=== PATIENT | male | born 1950 | race Hispanic/Latino ===

== ENCOUNTER 2020-03-29 22:04 | Observation (INO) | payer OTHER ==
[2020-03-29 22:54] LABS: Absolute Lymphocytes (CBC) 1.5 K/uL (0.7-4.9); Basophils % 0.3 % (0-1.3); Hematocrit 42.3 % (39.6-49.0); Lymphocytes % 16.2 % (15.3-44.8); MPV 9.3 fL (7.6-11.3); Protime INR 1.04
[2020-03-29 23:15] LABS: ALT/SGPT 26 U/L (12-78); Albumin 4.1 g/dL (3.4-5.0); Alkaline Phosphatase 78 U/L (45-117); BUN Blood Urea Nitrogen 20 mg/dL (7-18); Bicarbonate 27 mmol/L (21-32); Bilirubin Direct < 0.1 mg/dL (0-0.2); Bilirubin Total 0.5 mg/dL (0.2-1.0); Glucose Level 141 mg/dL (74-106); NT PRO-BNP 45 pg/mL (<125); Protein, Total 8.1 g/dL (6.4-8.2); Sodium Level 140 mmol/L (136-145); Troponin (Emerg Dept Use Only) < 0.02 ng/mL (0.0-0.045)
[2020-03-29 23:17] LABS: AST/SGOT 22 U/L (15-37); Magnesium 2.2 mg/dL (1.8-2.4)
--- NOTE | 2020-03-29 23:24 | EDPHYS ---
Physician Documentation [facility] Name: Arben Spear Age: 69 yrs Sex: Male : 1950 Arrival Date: 03/29/2020 Time: 22:06 Bed 14 Private MD: Juan Thomas ED Physician Deion Alvarez HPI: 03/30 06:57 This 69 yrs old Male presents to ER via Ambulatory with complaints of High tw4 Blood Pressure, Chest Pressure. 06:57 The patient or guardian reports chest pain that is located primarily in the anterior tw4 chest wall. Onset: today. 06:58 The pain does not radiate. Duration: The patient or guardian reports a single episode. tw4 Modifying factors: The symptoms are alleviated by nothing. the symptoms are aggravated by nothing. The patient has not experienced similar symptoms in the past. Historical: - Allergies: 03/29 22:26 No Known Allergies; sg - PMHx: 22:26 Hypertension; sg - Immunization history:: Adult Immunizations not up to date. - Social history:: Smoking status: Patient denies any tobacco usage or history of. ROS: 03/30 06:58 Constitutional: Negative for fever, chills, and weight loss. tw4 Eyes: Negative for injury, pain, redness, and discharge, Respiratory: Negative for shortness of breath, cough, wheezing, and pleuritic chest pain, Abdomen/GI: Negative for abdominal pain, nausea, vomiting, diarrhea, and constipation, Back: Negative for injury and pain, MS/Extremity: Negative for injury and deformity, Skin: Negative for injury, rash, and discoloration, Neuro: Negative for headache, weakness, numbness, tingling, and seizure. Cardiovascular: Positive for chest pain, Negative for edema, orthopnea, palpitations. Exam: 06:58 Constitutional: This is a well developed, well nourished patient who is awake, alert, tw4 and in no acute distress. Neck: Trachea midline, no thyromegaly or masses palpated, and no cervical lymphadenopathy. Supple, full range of motion without nuchal rigidity, or vertebral point tenderness. No Meningismus. Chest/axilla: Normal chest wall appearance and motion. Nontender with no deformity. No lesions are appreciated. Cardiovascular: Regular rate and rhythm with a normal S1 and S2. No gallops, murmurs, or rubs. Normal PMI, no JVD. No pulse deficits. Respiratory: Lungs have equal breath sounds bilaterally, clear to auscultation and percussion. No rales, rhonchi or wheezes noted. No increased work of breathing, no retractions or nasal flaring. Abdomen/GI: Soft, non-tender, with normal bowel sounds. No distension or tympany. No guarding or rebound. No evidence of tenderness throughout. Back: No spinal tenderness. No costovertebral tenderness. Full range of motion. Skin: Warm, dry with normal turgor. Normal color with no rashes, no lesions, and no evidence of cellulitis. MS/ Extremity: Pulses equal, no cyanosis. Neurovascular intact. Full, normal range of motion. Neuro: Awake and alert, GCS 15, oriented to person, place, time, and situation. Cranial nerves II-XII grossly intact. Motor strength 5/5 in all extremities. Sensory grossly intact. Cerebellar exam normal. Normal gait. Vital Signs: 03/29 22:28 BP 175 / 109; Pulse 101; Resp 18; Pulse Ox 99% on R/A; Weight 108.86 kg; Height 5 ft. zb 10 in. (177.80 cm); 03/30 00:14 BP 139 / 83; Pulse 65; Resp 18; Temp 98.5; Pulse Ox 96% on R/A; mg2 03/29 22:28 Body Mass Index 34.44 (108.86 kg, 177.80 cm) zb MDM: 03/29 22:24 Patient medically screened. tw4 03/30 06:59 HEART Score: History: Moderately Suspicious (1), ECG: Non specific repolarization tw4 disturbance / LBTB / PM (1), Age: > or = 65 years (2), Risk Factors: 1 or 2 risk factors (1), Troponin: < or = 1 x Normal Limit (0). Data reviewed: vital signs, nurses notes. Data interpreted: Pulse oximetry: Interpretation: normal. Counseling: I had a detailed discussion with the patient and/or guardian regarding: the historical points, exam findings, and any diagnostic results supporting the discharge/admit diagnosis. Physician consultation: Brando Alfonso MD regarding admission, to the telemetry unit. and will see patient in inpatient room. 03/29 22:25 Order name: Basic Metabolic Panel; Complete Time: 23:22 tw4 03/29 23:22 Interpretation: Normal except: GLUC 141; GFR 59; BUN 20. tw4 03/29 22:25 Order name: CBC with Diff; Complete Time: 23:22 tw4 03/29 23:22 Interpretation: Normal except: PLT 135; KIANA% 76.5. tw4 03/29 22:25 Order name: LFT's; Complete Time: 23:22 tw4 03/29 23:23 Interpretation: Normal except: A/G 1.0; GLOB 4.0. tw4 03/29 22:25 Order name: Magnesium; Complete Time: 23:22 tw4 03/29 23:23 Interpretation: Within normal limits: MG 2.2. tw4 03/29 22:25 Order name: NT PRO-BNP; Complete Time: 23:22 tw4 03/29 23:23 Interpretation: Within normal limits: NT PRO-BNP 45. tw4 03/29 22:25 Order name: PT-INR; Complete Time: 23:22 tw4 03/29 23:23 Interpretation: Within normal limits: PT 12.3. tw4 03/29 22:25 Order name: Troponin (emerg Dept Use Only); Complete Time: 23:22 tw4 03/29 23:23 Interpretation: Within normal limits: TROPED < 0.02. tw4 03/29 22:25 Order name: XRAY Chest (1 view) tw 03/29 22:25 Order name: EKG; Complete Time: 22:25 tw4 03/29 22:25 Order name: Cardiac monitoring; Complete Time: 22:37 4 03/30 00:51 Order name: SARS-COV-2 RT PCR EDMS 03/29 22:25 Order name: EKG - Nurse/Tech; Complete Time: 22:37 tw4 03/29 22:25 Order name: IV Saline Lock; Complete Time: 22:37 tw4 03/29 22:25 Order name: Labs collected and sent; Complete Time: 22:37 tw4 03/29 22:25 Order name: O2 Per Protocol; Complete Time: 22:37 tw4 03/29 22:25 Order name: O2 Sat Monitoring; Complete Time: 22:37 tw4 EC:58 Rhythm is regular. QRS [place] is Normal. [place] interval is normal. QRS interval is normal. tw4 QT interval is normal. No Q waves. T waves are Inverted in leads I, aVL, V3. No ST changes noted. Clinical impression: RBBB. Interpreted by me. Reviewed by me. Administered Medications: 03/29 23:51 Drug: Metoprolol TARTRATE (Lopressor) 50 mg Route: PO; mg2 03/30 00:14 Follow up: Response: No adverse reaction mg2 03/29 23:51 Drug: Aspirin Chewable Tablet 324 mg Route: PO; mg2 03/30 00:14 Follow up: Response: No adverse reaction mg2 Disposition: 03/29/20 23:24 Hospitalization ordered by Brando Alfonso for Observation. Preliminary diagnosis is Other chest pain. - Bed requested for Telemetry/MedSurg (observation). - Status is Observation. mg2 - Condition is Stable. - Problem is new. - Symptoms have improved. Signatures: Dispatcher [employer] EDMI Janet Aranda RN RN kl Alan Garcia RN CRYSTAL Arben Mann, DIRECTOR TRIAL-C DIRECTOR TRIAL-Cla1 Deion Alvarez MD MD tw4 Aaron Soto RN RN mg2 Deepti Orozco RN RN zb Corrections: (The following items were deleted from the chart) 03/29 23:55 23:26 CORONAVIRUS+MR.LAB.BRZ ordered. [facility] 03/30 00:01 03/29 23:24 Hospitalization Ordered by Brando Alfonso MD for Observation. Preliminary kl diagnosis is Other chest pain. Bed requested for Telemetry/MedSurg (observation). Status is Observation. Condition is Stable. Problem is new. Symptoms have improved. tw4 03/30 01:40 00:01 03/29/2020 23:24 Hospitalization Ordered by Brando Alfonso MD for Observation. mg2 Preliminary diagnosis is Other chest pain. Bed requested for Telemetry/MedSurg (observation). Status is Observation. Condition is Stable. Problem is new. Symptoms have improved. kl
--- NOTE | 2020-03-29 23:24 | ER ---
Nurse's Notes [facility] Name: Arben Spear Age: 69 yrs Sex: Male : 1950 Arrival Date: 03/29/2020 Time: 22:06 Bed 14 Private MD: Juan Thomas Diagnosis: Other chest pain Presentation: 03/29 22:24 Chief complaint: Patient states: My blood pressure been running higher than normal at home, and Im starting to have some pressure in my chest. denies SOB/FEVER/N/D at this time for triage. Coronavirus screen: Client denies travel out of the [place] in the last 14 days. Ebola Screen: Patient negative for fever greater than or equal to 101.5 degrees Fahrenheit, and additional compatible Ebola Virus Disease symptoms Patient denies exposure to infectious person. Patient denies travel to an Ebola-affected area in the 21 days before illness onset. No symptoms or risks identified at this time. Initial Sepsis Screen: Does the patient meet any 2 criteria? No. Patient's initial sepsis screen is negative. Does the patient have a suspected source of infection? No. Patient's initial sepsis screen is negative. Risk Assessment: Do you want to hurt yourself or someone else? Patient reports no desire to harm self or others. Onset of symptoms was March 29, 2020. Care prior to arrival: None. Transition of care: patient was not received from another setting of care. 22:24 Acuity: NAYELI 3 sg 22:24 Method Of Arrival: Ambulatory sg Historical: - Allergies: 22:26 No Known Allergies; sg - PMHx: 22:26 Hypertension; sg - Immunization history:: Adult Immunizations not up to date. - Social history:: Smoking status: Patient denies any tobacco usage or history of. Screenin:10 Abuse screen: Denies threats or abuse. Denies injuries from another. Nutritional zb screening: No deficits noted. Tuberculosis screening: No symptoms or risk factors identified. Fall Risk None identified. Assessment: 22:50 General: Appears in no apparent distress. comfortable, Behavior is calm, cooperative, zb appropriate for age, Denies fever, feeling ill, fatigue. Pain: Denies pain. Neuro: Level of Consciousness is awake, alert, obeys commands, Oriented to person, place, time, situation. Cardiovascular: Reports chest pressure earlier in the day Heart tones S1 S2 present Capillary refill < 3 seconds in bilateral fingers Patient's skin is warm and dry. Pulses are all present. Respiratory: Airway is patent Respiratory effort is even, unlabored, Respiratory pattern is regular, symmetrical. GI: Abdomen is round non-distended, Bowel sounds present X 4 quads. Abd is soft and non tender X 4 quads. : No signs and/or symptoms were reported regarding the genitourinary system. EENT: No signs and/or symptoms were reported regarding the EENT system. Derm: Skin is intact, is healthy with good turgor, Skin is dry, Skin is normal. Musculoskeletal: Circulation, motion, and sensation intact. Range of motion: intact in all extremities. 03/30 00:15 Reassessment: Patient appears in no apparent distress at this time. Patient and/or mg2 family updated on plan of care and expected duration. Pain level reassessed. Patient is alert, oriented x 3, equal unlabored respirations, skin warm/dry/pink. Arben-STUD DRIVER came and assessed the patient and advised admission. Vital Signs: 03/29 22:28 BP 175 / 109; Pulse 101; Resp 18; Pulse Ox 99% on R/A; Weight 108.86 kg; Height 5 ft. zb 10 in. (177.80 cm); 03/30 00:14 BP 139 / 83; Pulse 65; Resp 18; Temp 98.5; Pulse Ox 96% on R/A; mg2 03/29 22:28 Body Mass Index 34.44 (108.86 kg, 177.80 cm) zb ED Course: 03/29 22:06 Patient arrived in ED. am2 22:06 Juan Thomas MD is Private Physician. am2 22:16 Deepti Orozco, CRYSTAL is Primary Nurse. zb 22:24 Deion Alvarez MD is Attending Physician. tw4 22:24 Arm band placed on. sg 22:25 Triage completed. sg 22:30 Patient has correct armband on for positive identification. Bed in low position. Call zb light in reach. Side rails up X 1. court monitor on. Pulse ox on. NIBP on. 22:36 Inserted saline lock: 20 gauge in right antecubital area, using aseptic technique. dh4 Blood collected. 22:47 XRAY Chest (1 view) In Process Unspecified. EDMS 23:10 Patient maintains SpO2 saturation greater than 95% on room air. zb 23:23 Brando Alfonso MD is Hospitalizing Provider. tw4 03/30 00:15 No provider procedures requiring assistance completed. Patient admitted, IV remains in mg2 place. Administered Medications: 03/29 23:51 Drug: Metoprolol TARTRATE (Lopressor) 50 mg Route: PO; mg2 03/30 00:14 Follow up: Response: No adverse reaction [facility] 03/29 23:51 Drug: Aspirin Chewable Tablet 324 mg Route: PO; mg2 03/30 00:14 Follow up: Response: No adverse reaction mg2 Outcome: 03/29 23:24 Decision to Hospitalize by Provider. tw4 03/30 01:40 Admitted to Med/surg accompanied by adela, milena 231, with chart, Report called to [facility] CRYSTAL Ruelas Condition: improved Instructed on the need for admit, Demonstrated understanding of instructions. 01:40 Patient left the ED. [facility] Signatures: Dispatcher [employer] EDMS Alan Garcia, RN RN sg Arben Mann, STUD DRIVER-C STUD DRIVER-Cla1 Ramona Crouch am2 Deion Alvarez MD MD tw4 Aaron Soto RN RN [facility] Leroy Chung 4 Deepti Orozco RN RN zb Corrections: (The following items were deleted from the chart) 03/29 23:12 22:50 Pain: Denies pain. zb zb 23:48 23:38 Aspirin Chewable Tablet 324 mg PO la1 zb 23:49 23:39 Metoprolol TARTRATE (Lopressor) 50 mg PO la1 zb
[2020-03-29] MEDS ORDERED: ASPIRIN 81 MG CHEWABLE TABLET ONE (23:50)
[2020-03-29] MEDS ORDERED: METOPROLOL TAR 25 MG TAB ONE (23:50)
--- NOTE | 2020-03-29 23:50 | P.HP ---
Certification for Inpatient Patient admitted to: Observation With expected LOS: <2 Midnights Patient will require the following post-hospital care: None Practitioner: I am a practitioner with admitting privileges, knowledge of patient current condition, hospital course, and medical plan of care. Services: Services provided to patient in accordance with Admission requirements found in Title 42 Section 412.3 of the Code of Federal Regulations <Arben Mann - Last Filed: 03/29/20 23:47> Patient History Date of Service: 03/29/20 Primary Care Provider: Dr. Thomas Reason for admission: Chest pain History of Present Illness: 61-year-old male with history of hypertension presents emergency depar tment for chest pain. Patient reports that he is stating is sufficiently began having epigastric/substernal chest pressure across his anterior chest wall. Patient described as heaviness, nonradiating. No associated signs or symptoms reported, pain lasted for approximately 5-10 min. Patient reports occasionally having similar symptoms in the past but not frequently. Patient denies previous cardiac workup of any kind. Patient was evaluated in the emergency department, chest x-ray unremarkable, EKG without acute changes. Initial troponin negative. ED provider wishes to admit patient for further evaluation and management. When I saw the patient in the emergency department he was awake, alert, oriented x3. Patient currently chest pain-free. Patient was mildly hypertensive when I saw him with blood pressure 160/90 and heart rate of 93. Patient reports that he started taking oral steroids approximately 2 days ago for Sinus infection. Patient reportedly gets medications from [place] when he feels ill in takes them on his own. Patient given aspirin 324 p.o. and metoprolol 50 p.o. in the emergency department. - Past Medical/Surgical History -: Hypertension -: none Psychosocial/ Personal History: Patient lives at home with his - Family History Mother -: Cancer (Lung cancer) Father -: Other (see notes) (Brain aneurysm) - Social History Smoking Status: Never smoker Alcohol use: No CD- Drugs: No Caffeine use: Yes Place of Residence: Home <Arben Mann - Last Filed: 03/29/20 23:47> Date of Service: 03/29/20 <Brando Alfonso - Last Filed: 04/02/20 14:06> Review of Systems 10-point ROS is otherwise unremarkable ENT: Nose Discharge Cardiovascular: Chest Pain <Arben Mann - Last Filed: 03/29/20 23:47> Physical Examination - Physical Exam General: Alert, In no apparent distress HEENT: Atraumatic, PERRLA, Mucous membr. moist/pink, EOMI, Sclerae nonicteric Neck: Supple, 2+ carotid pulse no bruit, Without JVD or thyroid abnormality Respiratory: Clear to auscultation bilaterally, Normal air movement Cardiovascular: Regular rate/rhythm, Normal S1 S2 Gastrointestinal: Normal bowel sounds, No tenderness Musculoskeletal: No tenderness Integumentary: No rashes Neurological: Normal speech, Normal strength at 5/5 x4 extr, Normal tone, Normal affect - Studies Laboratory Data (last 24 hrs) 03/29/20 22:34: PT 12.3, INR 1.04 03/29/20 22:34: WBC 9.5, Hgb 14.5, Hct 42.3, Plt Count 135 L 03/29/20 22:34: Sodium 140, Potassium 4.0, BUN 20 H, Creatinine 1.22, Glucose 141 H, Magnesium 2.2, Total Bilirubin 0.5, AST 22, ALT 26, Alkaline Phosphatase 78 <Arben Mann - Last Filed: 03/29/20 23:47> Assessment and Plan - Plan Assessment Chest pain rule out ACS Hypertension Plan Chest pain rule out ACS: Aspirin, beta-jose, statin. Monitor on telemetry. Trend troponins, cardiology consult in place. DVT prophylaxis Lovenox 40 mg subcutaneous once daily. Hypertension: Continue amlodipine, patient was hypertensive even after taking his home medications. Start metoprolol 25 p.o. b.i.d.. Discharge Plan: Home Plan to discharge in: 24 Hours - Advance Directives Does patient have a Living Will: No Does patient have a Durable POA for Healthcare: No - Code Status/Comfort Care Code Status Assessed: Yes (Full code) Critical Care: No Time Spent Managing Pts Care (In Minutes): 55 <Arben aMnn - Last Filed: 03/29/20 23:47> - Plan Plan of care reviewed and agree as noted above by Arben Mann. Trend troponins. r/o ACS <Brando Alfonso - Last Filed: 04/02/20 14:06>
[2020-03-30] MEDS ORDERED: ACETAMINOPHEN 500 MG TAB PO PRN (01:43)
[2020-03-30] MEDS ORDERED: ONDANSETRON 4 MG/2 ML VIAL IV PRN (01:43)
[2020-03-30 02:13] VITALS: BMI 32.3
[2020-03-30 05:42] LABS: Absolute Lymphocytes (CBC) 1.3 K/uL (0.7-4.9); Basophils % 0.5 % (0-1.3); Hematocrit 40.3 % (39.6-49.0); Lymphocytes % 12.8 % (15.3-44.8); MPV 9.1 fL (7.6-11.3); RBC Red Blood Cell Count 4.56 M/uL (4.33-5.43)
[2020-03-30] MEDS ORDERED: METOPROLOL TAR 25 MG TAB PO SCH (06:00)
[2020-03-30 06:12] LABS: BUN Blood Urea Nitrogen 17 mg/dL (7-18); Bicarbonate 25 mmol/L (21-32); Glucose Level 136 mg/dL (74-106); HDL Cholesterol 40 mg/dL (40-60); LDL Cholesterol, Calculated 88 (<130); Potassium 4.4 mmol/L (3.5-5.1); Sodium Level 139 mmol/L (136-145); Thyroid Stimulating Hormone 0.414 uIU/mL (0.360-3.740); Troponin I < 0.02 ng/mL (0.0-0.045)
[2020-03-30 08:26] VITALS: O2SAT 55
[2020-03-30] MEDS ORDERED: AMLODIPINE 5 MG TAB PO SCH (09:00)
[2020-03-30] MEDS ORDERED: ENOXAPARIN 40 MG/0.4 ML SQ SCH (09:00)
[2020-03-30] MEDS ORDERED: ASPIRIN EC 81 MG TAB PO SCH (09:00)
--- NOTE | 2020-03-30 10:53 | RAD REPORT ---
EXAM DESCRIPTION: RAD - Chest Single View - 03/29/2020 10:48 pm CLINICAL HISTORY: CHEST PAIN COMPARISON: July 2011 TECHNIQUE: AP portable chest image was obtained 03/29/2020 10:48 pm . FINDINGS: No focal mass or consolidation. Interstitial pattern not substantially different when adju sting for inspiratory effort and technique differences. Heart and vasculature are normal. No measurab le pleural effusion and no pneumothorax. No acute bony abnormality seen. No acute aortic findings kei pected. IMPRESSION: No acute cardiopulmonary process.
[2020-03-30 13:37] VITALS: BP 135/70; TEMP 97.1
--- NOTE | 2020-03-30 20:26 | P.DS ---
Admission Date: 03/29/20 Discharge Date: 03/30/20 Primary Care Provider: Dr. Thomas Disposition: ROUTINE DISCHARGE Discharge Condition: GOOD Reason for Admission: Chest pain Consultations: Cardiology - Dr. Glynn Procedures: CXR (03/29): no acute cardiopulmonary process Problem List Chest pain r/o ACS Hypertension Brief History of Present Illness: 61yo male, PMH: HTN, presented to ED due to chest pain/pressure lasting for ~5- 10min. CXR was unremarkable, EKG without acute changes, and initial troponin was negative. He reportedly started taking oral steroids from [place] ~2 days ago for "sinus infection". Hospital Course: He was observed and troponins were trended (neg x3). ACS was ruled out. Cardiology was consulted. Patient was discharged home. He will f/u with Cardiology for outpatient stress testing in the next few weeks. He was noted to be hypertensive and had improvement with initiation of metoprolol. He was discharged with new prescription for metoprolol and aspirin. He is to f/u with cardiology for outpatient stress testing in the next few weeks. Vital Signs/Physical Exam: Temp Pulse Resp BP Pulse Ox 97.1 F 56 20 135/70 95 03/30/20 12:00 03/30/20 12:00 03/30/20 12:00 03/30/20 12:00 03/30/20 12:00 General: Alert, In no apparent distress, Oriented x3 HEENT: Sclerae nonicteric Neck: Supple Respiratory: Clear to auscultation bilaterally, Normal air movement Cardiovascular: No edema, Regular rate/rhythm, No murmurs Gastrointestinal: Soft and benign, Non-distended, No tenderness Musculoskeletal: No tenderness Integumentary: No rashes Neurological: Normal speech, Normal affect Laboratory Data at Discharge: WBC 10.2 K/uL (4.3-10.9) 03/30/20 05:33 Hgb 13.6 g/dL (13.6-17.9) 03/30/20 05:33 Hct 40.3 % (39.6-49.0) 03/30/20 05:33 Plt Count 137 K/uL (152-406) L 03/30/20 05:33 PT 12.3 SECONDS (9.5-12.5) 03/29/20 22:34 INR 1.04 03/29/20 22:34 Sodium 139 mmol/L (136-145) 03/30/20 05:33 Potassium 4.4 mmol/L (3.5-5.1) 03/30/20 05:33 BUN 17 mg/dL (7-18) 03/30/20 05:33 Creatinine 1.04 mg/dL (0.55-1.3) 03/30/20 05:33 Glucose 136 mg/dL (74-106) H 03/30/20 05:33 Magnesium 2.2 mg/dL (1.8-2.4) 03/29/20 22:34 Total Bilirubin 0.5 mg/dL (0.2-1.0) 03/29/20 22:34 AST 22 U/L (15-37) 03/29/20 22:34 ALT 26 U/L (12-78) 03/29/20 22:34 Alkaline Phosphatase 78 U/L (45-117) 03/29/20 22:34 Troponin I < 0.02 ng/mL (0.0-0.045) 03/30/20 10:57 Triglycerides 75 mg/dL (<150) 03/30/20 05:33 Cholesterol 143 mg/dL (<200) 03/30/20 05:33 HDL Cholesterol 40 mg/dL (40-60) 03/30/20 05:33 Cholesterol/HDL Ratio 3.58 03/30/20 05:33 Home Medications: Aspirin [Aspirin EC 81 MG] 81 mg PO DAILY 30 Days #30 tablet. 03/30/20 RX: Amlodipine Besylate 5 mg PO DAILY 03/30/20 RX: Metoprolol Tartrate [Lopressor*] 25 mg PO BID 30 Days #60 tab 03/30/20 New Medications: Aspirin [Aspirin EC 81 MG] 81 mg PO DAILY 30 Days #30 tablet. RX: Metoprolol Tartrate [Lopressor*] 25 mg PO BID 30 Days #60 tab Patient Discharge Instructions: follow up with Cardiology in the next few weeks - to check on your blood pressure and to schedule outpatient stress test. medications on discharge: continue amlodipine. NEW medications: aspirin 81mg daily, and metoprolol 25mg twice a day - to help with your high blood pressure. Diet: AHA Activity: Ad lelo Followup: Juan Thomas MD [Primary Care Provider] - Siddhartha Glynn MD [ACTIVE - CAN ADMIT] - Time spent managing pt's care (in minutes): 35
[2020-03-30] MEDS ORDERED: ATORVASTATIN 40 MG TAB PO SCH (21:00)
== END 2020-03-30 14:56 | disposition home or self-care (01) ==
LOC: ER 22:04 → ERHOLD 23:38 → 2ND 03-30 01:23
PROVIDERS: ADMIT Hospitalist; ATTEND Hospitalist
DX: R07.9 Chest pain, unspecified (principal); Z20.828 Contact with and (suspected) exposure to other viral communicable diseases; R94.31 Abnormal electrocardiogram [ECG] [EKG]; I10 Essential (primary) hypertension
CPT/HCPCS: 93005; 85025 ×2; 80048 ×2; 36415; 83735; 85610; 80061; 80076; 84443; 84484 ×3; 84439; 83880; 71045; 99285; U0003; J1650

== ENCOUNTER 2020-05-07 11:27 | Emergency (ER) | payer OTHER ==
[2020-05-07 13:10] LABS: Basophils % 0.3 % (0-1.3); Hematocrit 43.4 % (39.6-49.0); Lymphocytes % 17.5 % (15.3-44.8); MPV 8.6 fL (7.6-11.3); RBC Red Blood Cell Count 4.85 M/uL (4.33-5.43)
--- NOTE | 2020-05-07 13:15 | RAD REPORT ---
EXAM DESCRIPTION: RAD - Chest Single View - 05/07/2020 1:04 pm CLINICAL HISTORY: SOB Chest pain. COMPARISON: Chest Single View dated 03/29/2020; CHEST PA AND LAT 2 VIEW dated 07/21/2011 FINDINGS: Portable technique limits examination quality. Subtle interstitial opacities bilaterally seen suggesting bronchitis/viral pneumonia. Heart is mildly prominent size. No displaced fractures.
[2020-05-07 13:19] LABS: Protime INR 1.13
[2020-05-07 13:49] LABS: SARS-COV-2 RT PCR POSITIVE (NEGATIVE)
--- NOTE | 2020-05-07 15:33 | EDPHYS ---
Physician Documentation [facility] Name: Arben Spear Age: 69 yrs Sex: Male : 1950 Arrival Date: 05/07/2020 Time: 11:32 Bed 15 Private MD: ED Physician Curtis Alfonso HPI: 05/07 12:46 This 69 yrs old Male presents to ER via Ambulatory with complaints of Covid + jmm -SOB. 12:46 The patient or guardian reports cough. Onset: The symptoms/episode began/occurred jmm gradually. This is a 69 year old male with a history of HTN that presents to the ED with complaints of shortness of breath, cough. Patient is currently taking ivermectin. Complains of ongoing cough. . Historical: - Allergies: 11:37 PENICILLINS; ll1 - Home Meds: 12:30 ivermectin oral oral [Active]; benzonatate oral oral [Active]; Mucinex oral oral vg1 [Active]; - PMHx: 11:37 Hypertension; ll1 - PSHx: 11:37 None; ll1 - Immunization history:: Flu vaccine is up to date. - Social history:: Smoking status: Patient denies any tobacco usage or history of. ROS: 12:46 Constitutional: Negative for fever, chills, and weight loss, Cardiovascular: Negative jmm for chest pain, palpitations, and edema. 12:46 Respiratory: Positive for cough, shortness of breath. 12:46 All other systems are negative. Exam: 12:46 Constitutional: This is a well developed, well nourished patient who is awake, alert, jmm and in no acute distress. Head/Face: atraumatic. Eyes: EOMI, no conjunctival erythema appreciated ENT: Moist Mucus Membranes Neck: Trachea midline, Supple Chest/axilla: Normal chest wall appearance and motion. Cardiovascular: Regular rate and rhythm. No edema appreciated Respiratory: Normal respirations, no respiratory distress appreciated Abdomen/GI: Non distended, soft Back: Normal ROM Skin: General appearance color normal MS/ Extremity: Moves all extremities, no obvious deformities appreciated, no edema noted to the lower extremities Neuro: Awake and alert, normal gait Psych: Behavior is normal, Mood is normal, Patient is cooperative and pleasant Vital Signs: 11:37 BP 130 / 73; Pulse 74; Resp 20; Temp 98.6; Pulse Ox 96% on R/A; Weight 108.86 kg; ll1 Height 5 ft. 10 in. (177.80 cm); Pain 0/10; 12:32 BP 131 / 77; Pulse 67; Resp 18; Pulse Ox 95% on R/A; vg1 13:00 BP 121 / 68; Pulse 74; Resp 20; Pulse Ox 96% on R/A; vg1 14:00 BP 128 / 72; Pulse 72; Resp 20; Pulse Ox 96% on R/A; vg1 15:00 BP 124 / 82; Pulse 84; Resp 22; Pulse Ox 96% on R/A; vg1 16:00 BP 129 / 86; Pulse 72; Resp 20; Pulse Ox 96% on R/A; vg1 11:37 Body Mass Index 34.44 (108.86 kg, 177.80 cm) ll1 MDM: 12:25 Patient medically screened. [facility] 15:29 Data reviewed: vital signs, nurses notes. Counseling: I had a detailed discussion with renata the patient and/or guardian regarding: the historical points, exam findings, and any diagnostic results supporting the discharge/admit diagnosis, lab results, radiology results, the need for outpatient follow up, to return to the emergency department if symptoms worsen or persist or if there are any questions or concerns that arise at home. ED course: Patientis alert and non toxic in appearance in the ED. No signs of resp distress. I do not suspect PE. Patient is encouraged to continue medications except for benzonatate. Patient is otherwise given strict return precautions. Patient understood and agrees with the plan of care. . 05/07 12:26 Order name: Basic Metabolic Panel [facility] 05/07 12:26 Order name: CBC with Diff; Complete Time: 13:31 [facility] 05/07 12:26 Order name: LFT's [facility] 05/07 12:26 Order name: Magnesium; Complete Time: 10:03 [facility] 05/07 12:26 Order name: NT PRO-BNP [facility] 05/07 12:26 Order name: PT-INR; Complete Time: 14:08 [facility] 05/07 12:26 Order name: Troponin (emerg Dept Use Only); Complete Time: 10:03 [facility] 05/07 12:26 Order name: Procalcitonin; Complete Time: 13:56 [facility] 05/07 12:26 Order name: Lactate; Complete Time: 13:31 [facility] 05/07 12:26 Order name: D-Dimer; Complete Time: 14:08 [facility] 05/07 12:26 Order name: CRP; Complete Time: 10:03 [facility] 05/07 12:27 Order name: Basic Metabolic Panel; Complete Time: 10:03 EDMS 05/07 12:26 Order name: XRAY Chest (1 view); Complete Time: 13:31 [facility] 05/07 12:26 Order name: EKG; Complete Time: 12:28 [facility] 05/07 12:26 Order name: Cardiac monitoring; Complete Time: 12:57 [facility] 05/07 12:26 Order name: EKG - Nurse/Tech; Complete Time: 12:57 [facility] 05/07 12:26 Order name: IV Saline Lock; Complete Time: 12:57 [facility] 05/07 12:26 Order name: Labs collected and sent; Complete Time: 12:57 [facility] 05/07 12:26 Order name: O2 Per Protocol; Complete Time: 12:31 [facility] 05/07 12:26 Order name: O2 Sat Monitoring; Complete Time: 12:31 [facility] 05/07 12:27 Order name: Liver (Hepatic) Function; Complete Time: 10:03 [facility] 05/07 12:27 Order name: NT PRO-BNP; Complete Time: 10:03 [facility] 05/07 13:49 Order name: COVID-19/FLU A+B; Complete Time: 13:56 EDMS Administered Medications: No medications were administered Disposition: 05/07/20 15:32 Discharged to Home. Impression: Coronavirus infection, unspecified. - Condition is Stable. - Discharge Instructions: COVID-19. - Prescriptions for Albuterol Sulfate 90 mcg/actuation - inhale 1-2 puff by INHALATION route every 4-6 hours; 1 Inhaler. - Medication Reconciliation Form, Thank You Letter, Antibiotic Education, Prescription Opioid Use form. - Follow up: Private Physician; When: 2 - 3 days; Reason: Recheck today's complaints, Continuance of care, Re-evaluation by your physician. - Notes: Please discontinue Tessalon Perles. Please take 1000 MG of NAC twice a day Return to the ED if you develop increased shortness of breath. Addendum: 05/10/2020 10:03 Co-signature as Attending Physician, Curtis Alfonso MD. r n Signatures: Dispatcher [employer] EDSC Denver Whelan PA PA jmm Nieto, Roman, MD MD rn Shawna Ferrer RN RN vg1 Ovidio Aranda RN RN ll1 Corrections: (The following items were deleted from the chart) 05/07 13:06 12:27 CORONAVIRUS+MR.LAB.BRZ ordered. EDSC EDMS 13:07 12:27 Influenza Screen (A \T\ B)+BA.LAB.BRZ ordered. EDSC EDMS 16:15 15:32 05/07/2020 15:32 Discharged to Home. Impression: Coronavirus infection, vg1 unspecified. Condition is Stable. Forms are Medication Reconciliation Form, Thank You Letter, Antibiotic Education, Prescription Opioid Use. Follow up: Private Physician; When: 2 - 3 days; Reason: Recheck today's complaints, Continuance of care, Re-evaluation by your physician. vero
--- NOTE | 2020-05-07 15:33 | ER ---
Nurse's Notes [facility] Name: Arben Spear Age: 69 yrs Sex: Male : 1950 Arrival Date: 05/07/2020 Time: 11:32 Bed 15 Private MD: Diagnosis: Coronavirus infection, unspecified Presentation: 05/07 11:37 Chief complaint: Patient states: Cough, congestion, SOB for 2 weeks. + covid test at [facility] [place] last Tuesday. Coronavirus screen: Client denies travel out of the [place] in the last 14 days. congestion, cough unrelated to allergies, difficulty breathing, shortness of breath, Client presents with at least one sign or symptom that may indicate coronavirus-19. Standard/surgical mask placed on the client. Ebola Screen: Patient denies travel to an Ebola-affected area in the 21 days before illness onset. Initial Sepsis Screen: Does the patient meet any 2 criteria? No. Patient's initial sepsis screen is negative. Does the patient have a suspected source of infection? Yes: Productive cough/pneumonia. Risk Assessment: Do you want to hurt yourself or someone else? Patient reports no desire to harm self or others. Onset of symptoms was April 23, 2020. 11:37 Method Of Arrival: Ambulatory [facility] 11:37 Acuity: NAYELI 3 1 Triage Assessment: 11:39 General: Appears uncomfortable, Behavior is calm, cooperative, appropriate for age. ll1 Pain: Denies pain. Respiratory: Reports shortness of breath on exertion cough that is Airway is patent Trachea midline Respiratory effort is even, unlabored, Respiratory pattern is regular, symmetrical, Sputum is dry cough the patient has mild shortness of breath. Historical: - Allergies: 11:37 PENICILLINS; ll1 - Home Meds: 12:30 ivermectin oral oral [Active]; benzonatate oral oral [Active]; Mucinex oral oral vg1 [Active]; - PMHx: 11:37 Hypertension; ll1 - PSHx: 11:37 None; ll1 - Immunization history:: Flu vaccine is up to date. - Social history:: Smoking status: Patient denies any tobacco usage or history of. Screenin:31 Abuse screen: Denies threats or abuse. Nutritional screening: No deficits noted. vg1 Tuberculosis screening: No symptoms or risk factors identified. Fall Risk No fall in past 12 months (0 pts). No secondary diagnosis (0 pts). IV access (20 points). Ambulatory Aid- None/Bed Rest/Nurse Assist (0 pts). Gait- Normal/Bed Rest/Wheelchair (0 pts) Mental Status- Oriented to own ability (0 pts). Total Herr Fall Scale indicates No Risk (0-24 pts). Assessment: 12:20 General: Appears in no apparent distress. comfortable, Behavior is calm, cooperative. vg1 Pain: Denies pain. Neuro: Level of Consciousness is awake, alert, obeys commands, Oriented to person, place, time, situation. Cardiovascular: Patient's skin is warm and dry. Respiratory: Reports shortness of breath on exertion cough that is productive. Respiratory: Airway is patent Respiratory effort is even, unlabored, Respiratory pattern is regular, symmetrical, Breath sounds with wheezes in left posterior lower lobe, right posterior middle lobe and right posterior lower lobe. GI: Patient currently denies diarrhea, nausea, vomiting. : No signs and/or symptoms were reported regarding the genitourinary system. EENT: No signs and/or symptoms were reported regarding the EENT system. Derm: Skin is intact, is healthy with good turgor. Musculoskeletal: Circulation, motion, and sensation intact. 12:28 Reassessment: Patient is currently taking Ivermectin. vg1 14:11 Reassessment: Patient appears in no apparent distress at this time. Patient and/or vg1 family updated on plan of care and expected duration. Pain level reassessed. Patient is alert, oriented x 3, equal unlabored respirations, skin warm/dry/pink. Patient denies pain at this time. Patient states feeling better. 16:10 Reassessment: Patient appears in no apparent distress at this time. Patient and/or vg1 family updated on plan of care and expected duration. Pain level reassessed. Patient is alert, oriented x 3, equal unlabored respirations, skin warm/dry/pink. Patient denies pain at this time. Patient states feeling better. Vital Signs: 11:37 BP 130 / 73; Pulse 74; Resp 20; Temp 98.6; Pulse Ox 96% on R/A; Weight 108.86 kg; ll1 Height 5 ft. 10 in. (177.80 cm); Pain 0/10; 12:32 BP 131 / 77; Pulse 67; Resp 18; Pulse Ox 95% on R/A; vg1 13:00 BP 121 / 68; Pulse 74; Resp 20; Pulse Ox 96% on R/A; vg1 14:00 BP 128 / 72; Pulse 72; Resp 20; Pulse Ox 96% on R/A; vg1 15:00 BP 124 / 82; Pulse 84; Resp 22; Pulse Ox 96% on R/A; vg1 16:00 BP 129 / 86; Pulse 72; Resp 20; Pulse Ox 96% on R/A; vg1 11:37 Body Mass Index 34.44 (108.86 kg, 177.80 cm) ll1 ED Course: 11:32 Patient arrived in ED. ds1 11:36 Arm band placed on. ll1 11:39 Triage completed. ll1 12:09 Denver Whelan PA is PHCP. [facility] 12:09 Curtis Alfonso MD is Attending Physician. vero 12:10 Shawna Ferrer, CRYSTAL is Primary Nurse. vg1 12:31 Patient has correct armband on for positive identification. Bed in low position. Call vg1 light in reach. Side rails up X 1. 12:53 Inserted saline lock: 20 gauge in right antecubital area, using aseptic technique. vg1 Blood collected. 12:53 Initial lab(s) drawn, by pa, sent to lab. vg1 13:04 XRAY Chest (1 view) In Process Unspecified. EDMS 16:12 No provider procedures requiring assistance completed. IV discontinued, intact, vg1 bleeding controlled, No redness/swelling at site. Pressure dressing applied. Administered Medications: No medications were administered Outcome: 15:32 Discharge ordered by . [facility] 16:11 Discharged to home vg1 16:11 Condition: stable 16:11 Discharge instructions given to patient, Instructed on discharge instructions, follow up and referral plans. medication usage, Demonstrated understanding of instructions, follow-up care, medications, Prescriptions given X 1. 16:15 Patient left the ED. vg1 Signatures: Dispatcher [employer] EDMS Denver Whelan PA PA jmm Sanford, Demi ds1 Shawna Ferrer, RN RN vg1 Ovidio Aranda RN RN ll1 Corrections: (The following items were deleted from the chart) 14:10 12:20 Respiratory: Airway is patent Respiratory effort is even, unlabored, Respiratory vg1 pattern is regular, symmetrical, vg1
[2020-05-07 16:23] VITALS: TEMP 98.6
[2020-05-07 16:25] VITALS: O2SAT 96
[2020-05-07 16:29] VITALS: BP 129/86
[2020-05-07 16:49] LABS: ALT/SGPT 28 U/L (12-78); AST/SGOT 26 U/L (15-37); Albumin 3.6 g/dL (3.4-5.0); Alkaline Phosphatase 64 U/L (45-117); BUN Blood Urea Nitrogen 19 mg/dL (7-18); Bicarbonate 26 mmol/L (21-32); Bilirubin Direct 0.1 mg/dL (0-0.2); Bilirubin Total 0.6 mg/dL (0.2-1.0); Glucose Level 88 mg/dL (74-106); Magnesium 2.3 mg/dL (1.8-2.4); NT PRO-BNP 40 pg/mL (<125); Potassium 4.6 mmol/L (3.5-5.1); Protein, Total 7.4 g/dL (6.4-8.2); Sodium Level 136 mmol/L (136-145); Troponin (Emerg Dept Use Only) < 0.02 ng/mL (0.0-0.045)
== END 2020-05-07 16:15 | disposition home or self-care (01) ==
LOC: ER 11:27
DX: U07.1 COVID-19 (principal); B34.2 Coronavirus infection, unspecified; Z88.0 Allergy status to penicillin; I10 Essential (primary) hypertension
CPT/HCPCS: 0240U; 36415; 71045; 80048; 80076; 83605; 83735; 83880; 84145; 84484; 85025; 85379; 85610; 86140; 93005; 99284

== ENCOUNTER 2020-05-10 05:58 | Inpatient (IN) | payer OTHER ==
[2020-05-10 07:21] LABS: Absolute Lymphocytes (CBC) 0.7 K/uL (0.7-4.9); Basophils % 0.2 % (0-1.3); Hematocrit 40.4 % (39.6-49.0); Lymphocytes % 12.2 % (15.3-44.8); MPV 8.3 fL (7.6-11.3); Protime INR 1.25; RBC Red Blood Cell Count 4.56 M/uL (4.33-5.43)
[2020-05-10 07:32] LABS: ALT/SGPT 27 U/L (12-78); AST/SGOT 31 U/L (15-37); Albumin 3.3 g/dL (3.4-5.0); Alkaline Phosphatase 54 U/L (45-117); BUN Blood Urea Nitrogen 16 mg/dL (7-18); Bicarbonate 28 mmol/L (21-32); Bilirubin Direct 0.3 mg/dL (0-0.2); Bilirubin Total 0.9 mg/dL (0.2-1.0); Glucose Level 101 mg/dL (74-106); Magnesium 2.2 mg/dL (1.8-2.4); NT PRO-BNP 52 pg/mL (<125); Potassium 4.5 mmol/L (3.5-5.1); Protein, Total 7.4 g/dL (6.4-8.2); Sodium Level 134 mmol/L (136-145); Troponin (Emerg Dept Use Only) < 0.02 ng/mL (0.0-0.045)
--- NOTE | 2020-05-10 10:31 | RAD REPORT ---
EXAM DESCRIPTION: Kelly Single View05/10/2020 7:33 am CLINICAL HISTORY: Shortness of breath COMPARISON: May 07, 2020 FINDINGS: Mild bilateral pulmonary opacities unchanged. Heart is normal size IMPRESSION: Mild bilateral pulmonary opacities unchanged which may represent pneumonia
--- NOTE | 2020-05-10 10:46 | ER ---
Nurse's Notes [facility] Name: Arben Spear Age: 69 yrs Sex: Male : 1950 Arrival Date: 05/10/2020 Time: 06:01 Bed 5 Private MD: Juan Thomas Diagnosis: Coronavirus infection, unspecified;Pneumonia, unspecified organism;Hypoxemia Presentation: 05/10 06:35 Chief complaint: Patient states: Cough and shortness of breath at home, reports O2 at lp1 80% at home; Patient diagnosed COVID positive on 04/27/20. Coronavirus screen: Client presents with at least one sign or symptom that may indicate coronavirus-19. Standard/surgical mask placed on the client. Client reports previous positive COVID test result. Date of collection: April 27, 2020. Ebola Screen: No symptoms or risks identified at this time. Initial Sepsis Screen: Does the patient meet any 2 criteria? No. Patient's initial sepsis screen is negative. Does the patient have a suspected source of infection? No. Patient's initial sepsis screen is negative. Risk Assessment: Do you want to hurt yourself or someone else? Patient reports no desire to harm self or others. Onset of symptoms was May 10, 2020. 06:35 Method Of Arrival: Wheelchair lp1 06:35 Acuity: NAYELI 2 lp1 06:38 Note Patient placed on 3L O2 via NC; O2 at 94%. lp1 Triage Assessment: 06:45 Respiratory: Onset: The symptoms/episode began/occurred gradually, the patient has mild wh shortness of breath. Historical: - Allergies: 06:37 PENICILLINS; lp1 - Home Meds: 06:37 benzonatate Oral [Active]; Metoprolol Tartrate Oral [Active]; lp1 - PMHx: 06:37 Hypertension; lp1 - PSHx: 06:37 None; lp1 - Immunization history:: Adult Immunizations up to date. - Social history:: Smoking status: Patient denies any tobacco usage or history of. - Family history:: not pertinent. - Hospitalizations: : No recent hospitalization is reported. Screenin:40 Abuse screen: Denies threats or abuse. Denies injuries from another. Nutritional wh screening: No deficits noted. Tuberculosis screening: No symptoms or risk factors identified. Fall Risk None identified. Assessment: 06:43 General: Appears in no apparent distress. Behavior is calm, cooperative, appropriate wh for age. Pain: Denies pain. Neuro: Level of Consciousness is awake, alert, obeys commands, Oriented to person, place, time, situation, Appropriate for age. Cardiovascular: Heart tones S1 S2 Rhythm is regular. Respiratory: Reports shortness of breath cough that is Airway is patent Respiratory effort is even, Respiratory pattern is regular, tachypnea Breath sounds are diminished. GI: Abdomen is non-distended. : No signs and/or symptoms were reported regarding the genitourinary system. EENT: No signs and/or symptoms were reported regarding the EENT system. Derm: Skin is intact, is healthy with good turgor, Skin is pink, warm \T\ dry. normal. Musculoskeletal: Circulation, motion, and sensation intact. 07:22 Reassessment: RECD REPORT FROM ELLEN ROJAS. 69YO HM P/W SOB, COVID +. DISPO PENDING. bp 08:53 Reassessment: Patient appears in no apparent distress at this time. No changes from jd3 previously documented assessment. Patient and/or family updated on plan of care and expected duration. Pain level reassessed. Patient is alert, oriented x 3, equal unlabored respirations, skin warm/dry/pink. 09:56 Reassessment: Patient appears in no apparent distress at this time. No changes from bp previously documented assessment. Patient and/or family updated on plan of care and expected duration. Pain level reassessed. Patient is alert, oriented x 3, equal unlabored respirations, skin warm/dry/pink. ALL CURRENT ORDERS COMPLETED. 11:17 Reassessment: Patient appears in no apparent distress at this time. No changes from bp previously documented assessment. Patient and/or family updated on plan of care and expected duration. Pain level reassessed. Patient is alert, oriented x 3, equal unlabored respirations, skin warm/dry/pink. ADMIT INITIATED. 12:10 Reassessment: Patient appears in no apparent distress at this time. Patient and/or ca1 family updated on plan of care and expected duration. Pain level reassessed. Patient is alert, oriented x 3, equal unlabored respirations, skin warm/dry/pink. 20:20 Reassessment: Patient and/or family updated on plan of care and expected duration. Pain ea level reassessed. Patient is alert, oriented x 3, equal unlabored respirations, skin warm/dry/pink. Pt admitted to fourth floor, report given to receiving nurse. Pt left ED via wheelchair, tolerating well. Vital Signs: 06:35 BP 126 / 77; Pulse 86; Resp 24; Temp 98.6(O); Pulse Ox 92% on R/A; Weight 108.86 kg lp1 (R); Height 5 ft. 10 in. (177.80 cm); Pain 0/10; 08:53 BP 131 / 88; Pulse 71; Resp 20 S; Pulse Ox 98% on R/A; jd3 09:56 BP 124 / 81; Pulse 65; Resp 16; Pulse Ox 99% ; bp 10:42 Pulse Ox 88% ; rn 11:17 BP 117 / 73; Pulse 88; Resp 17; Pulse Ox 94% ; bp 12:10 BP 133 / 77; Pulse 89; Resp 18 S; Pulse Ox 96% on 2 lpm NC; ca1 13:05 BP 133 / 68; Pulse 89; Resp 20 S; Pulse Ox 92% on 2 lpm NC; ca1 20:21 BP 116 / 65; Pulse 80; Resp 18; Temp 98.3; Pulse Ox 90% on 3 lpm NC; ea 06:35 Body Mass Index 34.44 (108.86 kg, 177.80 cm) lp1 ED Course: 06:01 Patient arrived in ED. am2 06:01 Juan Thomas MD is Private Physician. am2 06:37 Triage completed. lp1 06:37 Arm band placed on. lp1 06:40 Ellen West, CRYSTAL is Primary Nurse. 06:41 Toi Royal MD is Attending Physician. 7 06:45 Patient has correct armband on for positive identification. Bed in low position. Call light in reach. Side rails up X 1. Pulse ox on. NIBP on. 06:59 Inserted saline lock: 20 gauge in right antecubital area, using aseptic technique. Blood collected. 07:11 Attending Physician role handed off by Toi Royal MD rn 07:11 Curtis Alfonso MD is Attending Physician. rn 07:22 Juan Muñoz, CRYSTAL is Primary Nurse. bp 07:33 XRAY Chest (1 view) In Process Unspecified. EDMS 10:45 Yovani Hopkins MD is Hospitalizing Provider. rn 19:15 No provider procedures requiring assistance completed. Patient admitted, IV remains in ea place. Administered Medications: 11:00 Drug: SOLU-Medrol 125 mg Route: IVP; Site: right antecubital; bp Outcome: 10:46 Decision to Hospitalize by Provider. rn 19:15 Instructed on the need for admit, Demonstrated understanding of instructions. ea 20:19 Admitted to Med/surg accompanied by tech, via wheelchair, room 406, with oxygen, with ea chart, Report called to Receiving nurse on fourth floor 20:19 Condition: stable 20:29 Patient left the ED. ea Signatures: Dispatcher [employer] EDMS Curtis Alfonso MD MD rn Pena, Laura RN RN lp1 Ramona Crouch am2 Corin Avery RN RN Ellen Flanagan RN RN Goran Simmons RN RN jJuan Kern RN CRYSTAL bp Acob, Marian RN CRYSTAL ca1 Toi Royal MD MD 7 Corrections: (The following items were deleted from the chart) 06:45 06:43 Respiratory: Reports shortness of breath cough that is Airway is patent wh Respiratory effort is even, unlabored, Respiratory pattern is regular, symmetrical, Breath sounds are diminished wh 08:55 08:53 Pulse 71bpm; Resp 20bpm; Spontaneous; Pulse Ox 98% RA; jd3 jd3
--- NOTE | 2020-05-10 10:47 | EDPHYS ---
Physician Documentation [facility] Name: Arben Spear Age: 69 yrs Sex: Male : 1950 Arrival Date: 05/10/2020 Time: 06:01 Bed 5 Private MD: Juan Thomas ED Physician Curtis Alfonso HPI: 05/10 07:43 This 69 yrs old Male presents to ER via Wheelchair with complaints of rn Shortness Of Breath, Cough, Covid +. 07:43 The patient has shortness of breath with light activity. Onset: The symptoms/episode rn began/occurred 1 week(s) ago. Duration: The symptoms are intermittent. The patient's shortness of breath is aggravated by exertion, light activity, is alleviated by nothing. Severity of symptoms: At their worst the symptoms were moderate in the emergency department the symptoms are unchanged. The patient has not experienced similar symptoms in the past. The patient has been recently seen by a physician:. Reports diagnosed with COVID recently, still coughing and sob, doesn't feel like is getting better, taking abx from PCP, no hemoptysis, no chest pain, no hx of dvt/pe, reports oxygen 79% at home. . Historical: - Allergies: 06:37 PENICILLINS; lp1 - Home Meds: 06:37 benzonatate Oral [Active]; Metoprolol Tartrate Oral [Active]; lp1 - PMHx: 06:37 Hypertension; lp1 - PSHx: 06:37 None; lp1 - Immunization history:: Adult Immunizations up to date. - Social history:: Smoking status: Patient denies any tobacco usage or history of. - Family history:: not pertinent. - Hospitalizations: : No recent hospitalization is reported. ROS: 07:43 Constitutional: Negative for fever, and weight loss, Eyes: Negative for injury, pain, rn redness, and discharge, Neck: Negative for injury, pain, and swelling, Cardiovascular: Negative for chest pain, palpitations, and edema, Respiratory: + cough and sob Abdomen/GI: Negative for abdominal pain, nausea, vomiting, diarrhea, and constipation, Back: Negative for injury and pain, MS/Extremity: Negative for injury and deformity, Skin: Negative for injury, rash, and discoloration, Neuro: Negative for headache, numbness, tingling, and seizure. Exam: 07:43 Constitutional: This is a well developed, well nourished patient who is awake, alert, rn mild tachypnea Head/Face: Normocephalic, atraumatic. ENT: dry MM, no stridor Cardiovascular: Regular rate and rhythm with a normal S1 and S2. No gallops, murmurs, or rubs. Normal PMI, no JVD. No pulse deficits. Respiratory: + mild tachypnea, + diminished at bases. Abdomen/GI: soft, non-tender Skin: Warm, dry MS/ Extremity: Pulses equal, no cyanosis. Equal circumference. Neuro: Awake and alert, GCS 15, oriented to person, place, time, and situation. Vital Signs: 06:35 BP 126 / 77; Pulse 86; Resp 24; Temp 98.6(O); Pulse Ox 92% on R/A; Weight 108.86 kg lp1 (R); Height 5 ft. 10 in. (177.80 cm); Pain 0/10; 08:53 BP 131 / 88; Pulse 71; Resp 20 S; Pulse Ox 98% on R/A; jd3 09:56 BP 124 / 81; Pulse 65; Resp 16; Pulse Ox 99% ; bp 10:42 Pulse Ox 88% ; rn 11:17 BP 117 / 73; Pulse 88; Resp 17; Pulse Ox 94% ; bp 12:10 BP 133 / 77; Pulse 89; Resp 18 S; Pulse Ox 96% on 2 lpm NC; ca1 13:05 BP 133 / 68; Pulse 89; Resp 20 S; Pulse Ox 92% on 2 lpm NC; ca1 20:21 BP 116 / 65; Pulse 80; Resp 18; Temp 98.3; Pulse Ox 90% on 3 lpm NC; ea 06:35 Body Mass Index 34.44 (108.86 kg, 177.80 cm) lp1 MDM: 07:11 Patient medically screened. rn 07:36 ED course: Signed out to me at shift change by Dr. Royal, pending evaluation for ДМИТРИЙ rn and sob.. 10:42 Differential diagnosis: pneumonia, Pneumothorax pulmonary edema, COVID pneumonia. Data rn reviewed: vital signs, nurses notes, lab test result(s), EKG, radiologic studies, plain films, and as a result, I will admit patient. 10:43 Counseling: I had a detailed discussion with the patient and/or guardian regarding: the rn historical points, exam findings, and any diagnostic results supporting the discharge/admit diagnosis, lab results, radiology results, the need for further work-up and treatment in the hospital. Response to treatment: the patient's symptoms have mildly improved after treatment, and as a result, I will admit patient. ED course: Pt winded when returning from bathroom, oxygen 88%, otherwise stable, reports oxygen 79% at home with exertion and good wave form, will admit. . 05/10 06:49 Order name: Basic Metabolic Panel; Complete Time: 08:36 7 05/10 06:49 Order name: CBC with Diff; Complete Time: 08:36 7 05/10 06:49 Order name: LFT's; Complete Time: 08:36 7 05/10 06:49 Order name: Magnesium; Complete Time: 08:36 7 05/10 06:49 Order name: NT PRO-BNP; Complete Time: 08:36 7 05/10 06:49 Order name: PT-INR; Complete Time: 08:36 7 05/10 06:49 Order name: Troponin (emerg Dept Use Only); Complete Time: 08:36 7 05/10 07:18 Order name: CRP rn 05/10 07:18 Order name: Blood Culture Adult (2) rn 05/10 07:18 Order name: Procalcitonin rn 05/10 07:27 Order name: D-Dimer; Complete Time: 08:36 [facility] 05/10 12:05 Order name: Comprehensive Metabolic Panel [facility] 05/10 12:05 Order name: Comprehensive Metabolic Panel [facility] 05/10 06:49 Order name: XRAY Chest (1 view); Complete Time: 10:36 [facility] 05/10 06:49 Order name: EKG; Complete Time: 06:50 7 05/10 06:49 Order name: Cardiac monitoring; Complete Time: 06:59 7 05/10 06:49 Order name: EKG - Nurse/Tech; Complete Time: 06:59 7 05/10 12:05 Order name: Troponin I [facility] 05/10 12:05 Order name: CONS Pharmacy Consult [facility] 05/10 12:05 Order name: CBC with Automated Diff [facility] 05/10 12:05 Order name: CBC with Automated Diff [facility] 05/10 12:05 Order name: Troponin I [facility] 05/10 12:05 Order name: Troponin I [facility] 05/10 12:05 Order name: Troponin I [facility] 05/10 12:07 Order name: COVID-19 eb 05/10 12:20 Order name: Diet Regular; Complete Time: 12:20 ca1 05/10 13:10 Order name: SARS-COV-[address] [facility] 05/10 06:49 Order name: IV Saline Lock; Complete Time: 06:59 7 05/10 06:49 Order name: Labs collected and sent; Complete Time: 06:59 mh7 05/10 06:49 Order name: O2 Per Protocol; Complete Time: 06:59 mh7 05/10 06:49 Order name: O2 Sat Monitoring; Complete Time: 06:59 mh7 Administered Medications: 11:00 Drug: SOLU-Medrol 125 mg Route: IVP; Site: right antecubital; bp Disposition: 05/10/20 10:46 Hospitalization ordered by Yovani Hopkins for Inpatient Admission. Preliminary diagnosis are Coronavirus infection, unspecified, Pneumonia, unspecified organism, Hypoxemia. - Bed requested for Telemetry/MedSurg (Inpatient). - Status is Inpatient Admission. ea - Condition is Stable. - Problem is an ongoing problem. - Symptoms have worsened. Signatures: Dispatcher [employer] EDCO Curtis Alfonso MD MD rn Pena, Laura, RN RN lp1 Ashwini Ferrer RN RN cg Corin Avery RN RN ea Peltier, Brian, RN RN bp Holmes, Maurice, MD MD 7 Corrections: (The following items were deleted from the chart) 07:27 07:18 D-DIMER+COAG.LAB.BRZ ordered. EDCO EDCO 12:24 12:[address] [facility] EDCO 14:29 10:46 Hospitalization Ordered by Yovani Hopkins MD for Inpatient Admission. Preliminary bp diagnosis is Coronavirus infection, unspecified; Pneumonia, unspecified organism; Hypoxemia. Bed requested for Telemetry/MedSurg (Inpatient). Status is Inpatient Admission. Condition is Stable. Problem is an ongoing problem. Symptoms have worsened. rn 19:56 14:29 05/10/2020 10:46 Hospitalization Ordered by Yovani Hopkins MD for Inpatient cg Admission. Preliminary diagnosis is Coronavirus infection, unspecified; Pneumonia, unspecified organism; Hypoxemia. Bed requested for [facility] ER HOLD. Status is Inpatient Admission. Condition is Stable. Problem is an ongoing problem. Symptoms have worsened. bp 20:29 19:56 05/10/2020 10:46 Hospitalization Ordered by Yovani Hopkins MD for Inpatient ea Admission. Preliminary diagnosis is Coronavirus infection, unspecified; Pneumonia, unspecified organism; Hypoxemia. Bed requested for Telemetry/MedSurg (Inpatient). Status is Inpatient Admission. Condition is Stable. Problem is an ongoing problem. Symptoms have worsened. cg
[2020-05-10] MEDS ORDERED: METHYLPREDNISOLONE 125 MG INJ ONE ×2 (11:27→15:44)
[2020-05-10] MEDS ORDERED: ONDANSETRON 4 MG/2 ML VIAL IV PRN (12:00)
[2020-05-10] MEDS ORDERED: ALBUTEROL 2.5 MG/3 ML NEB SOL NEB PRN (12:00)
[2020-05-10] MEDS ORDERED: MORPHINE 2 MG/ML SYR IV PRN (12:00)
[2020-05-10] MEDS ORDERED: ACETAMINOPHEN 500 MG TAB PO PRN (12:00)
--- NOTE | 2020-05-10 12:00 | P.HP ---
Certification for Inpatient Patient admitted to: Observation With expected LOS: <2 Midnights Patient will require the following post-hospital care: None Practitioner: I am a practitioner with admitting privileges, knowledge of patient current condition, hospital course, and medical plan of care. Services: Services provided to patient in accordance with Admission requirements found in Title 42 Section 412.3 of the Code of Federal Regulations Patient History Date of Service: 05/10/20 Reason for admission: SOB History of Present Illness: 69-year-old male past medical history of hypertension, recently diagnosed with cold feet, had a chest x-ray done 2 days ago with finding of pulmonary infiltrate by from PCP's office. He was started on empirical antibiotics as well as steroids. Patient admits to worsening shortness of breath. He had checked his O2 sat at home was down to 79%. He presents to the ED because of persistent cough and shortness of breath. On arrival he was noted to be mildly dyspneic on exertion with O2 sats down to 88%. He has been admitted for observation. Repeat chest x-ray shows unchanged pulmonary alveolar infiltrates Allergies Penicillins Allergy (Verified 03/30/20 06:09) Hives/Rash Home Medications: Amlodipine Besylate 5 mg PO DAILY 03/30/20 Aspirin [Aspirin EC 81 MG] 81 mg PO DAILY 30 Days #30 tablet. 03/30/20 Metoprolol Tartrate [Lopressor*] 25 mg PO BID 30 Days #60 tab 03/30/20 - Past Medical/Surgical History Diabetic: No -: Hypertension -: none Psychosocial/ Personal History: Patient lives at home with his - Family History Mother -: Lung disease, Cancer Father -: Heart disease, Other (see notes) Notes: aneurysm - Social History Alcohol use: Yes CD- Drugs: No Caffeine use: Yes Review of Systems 10-point ROS is otherwise unremarkable Physical Examination - Physical Exam General: Alert, Oriented x3 HEENT: Atraumatic, Normocephalic, PERRLA Neck: Supple, 2+ carotid pulse no bruit, JVD not distended Respiratory: Normal air movement, Diminished Cardiovascular: No edema, Normal pulses, Regular rate/rhythm, Normal S1 S2 Gastrointestinal: Normal bowel sounds, Soft and benign, Non-distended Musculoskeletal: No clubbing, No swelling Integumentary: No rashes, No breakdown Neurological: Normal speech, Normal strength at 5/5 x4 extr, Normal tone - Studies Laboratory Data (last 24 hrs) 05/10/20 06:58: PT 14.7 H, INR 1.25 05/10/20 06:58: WBC 5.6, Hgb 13.6, Hct 40.4, Plt Count 107 L 05/10/20 06:58: Sodium 134 L, Potassium 4.5, BUN 16, Creatinine 1.20, Glucose 101, Magnesium 2.2, Total Bilirubin 0.9, AST 31, ALT 27, Alkaline Phosphatase 54 Assessment and Plan - Advance Directives Does patient have a Living Will: No Does patient have a Durable POA for Healthcare: No - Code Status/Comfort Care Code Status Assessed: Yes Code Status: Full Code Physician Review: Patient Assessed, Agree with Above Assessment and Plan Physician Review Additional Text: Covid 19 bilateral pneumonia Acute respiratory distress Hypertension Plan -will admit to observation Given might O2 desaturation on S action, we start empirical supplemental O2 with 2 L nasal cannula. Continue IV steroids we switch to IV With those ivermectin 12 mg x1 today and repeat dose in 48 hr. We start patient on zinc Continue home BP room medication We start empirical anticoagulation with Lovenox 40 mg daily Start empirical Tessalon Perles for cough symptoms Patient discuss with an wanting to be full code. Expected discharge in the next 24-48 hr
[2020-05-10] MEDS ORDERED: HYDRALAZINE HCL 20 MG/ML VIAL IV PRN (12:02)
[2020-05-10] MEDS ORDERED: BENZONATATE 100 MG CAP PO PRN (12:05)
[2020-05-10] MEDS: METHYLPREDNISOLONE 125 MG INJ IV SCH ×2 (18:00→23:43)
[2020-05-10] MEDS: FAMOTIDINE 20 MG TAB PO SCH (20:52)
[2020-05-10] MEDS: GUAIFENESIN 600 MG SA TAB PO SCH (20:52)
[2020-05-10 21:23] VITALS: BMI 32.5
[2020-05-10] MEDS ORDERED: IVERMECTIN 3 MG TABLET PO SCH (22:00)
[2020-05-11 03:54] LABS: Absolute Lymphocytes (CBC) 0.6 K/uL (0.7-4.9); Basophils % 0.1 % (0-1.3); Hematocrit 38.8 % (39.6-49.0); Lymphocytes % 15.3 % (15.3-44.8); MPV 8.6 fL (7.6-11.3); RBC Red Blood Cell Count 4.38 M/uL (4.33-5.43)
[2020-05-11 04:12] LABS: ALT/SGPT 27 U/L (12-78); AST/SGOT 25 U/L (15-37); Albumin 2.9 g/dL (3.4-5.0); Alkaline Phosphatase 38 U/L (45-117); BUN Blood Urea Nitrogen 19 mg/dL (7-18); Bicarbonate 27 mmol/L (21-32); Bilirubin Total 0.6 mg/dL (0.2-1.0); Glucose Level 173 mg/dL (74-106); Potassium 4.7 mmol/L (3.5-5.1); Protein, Total 6.9 g/dL (6.4-8.2); Sodium Level 137 mmol/L (136-145); Troponin I < 0.02 ng/mL (0.0-0.045)
[2020-05-11] MEDS: METHYLPREDNISOLONE 125 MG INJ IV SCH ×3 (05:16→20:00)
[2020-05-11] MEDS ORDERED: IVERMECTIN 3 MG TABLET PO SCH (08:00)
[2020-05-11] MEDS ORDERED: ASPIRIN EC 81 MG TAB PO SCH (09:00)
[2020-05-11] MEDS: ASPIRIN EC 81 MG TAB PO SCH ×2 (09:06→09:08)
[2020-05-11] MEDS: FAMOTIDINE 20 MG TAB PO SCH ×2 (09:07→20:01)
[2020-05-11] MEDS: ENOXAPARIN 40 MG/0.4 ML SQ SCH (09:07)
[2020-05-11] MEDS: GUAIFENESIN 600 MG SA TAB PO SCH ×2 (09:08→20:01)
[2020-05-11] MEDS: ZINC SULFATE 220 MG CAP PO SCH (09:08)
--- NOTE | 2020-05-11 12:52 | P.PN ---
Subjective Date of Service: 05/11/20 Chief Complaint: James virus pneumonia Subjective: Improving (Patient is improving doing real well still less some shortness of breath) Review of Systems General: Weakness Respiratory: Shortness of Breath Physical Examination - Vital Signs Temperature: 97.7 F Blood Pressure: 130/72 Pulse: 69 Respirations: 19 Pulse Ox (%): 91 - Physical Exam General: Alert, In no apparent distress, Oriented x3 Respiratory: Clear to auscultation bilaterally Cardiovascular: No edema, Normal S1 S2 Assessment & Plan - Problems (Diagnosis) (1) Pneumonia due to 2019 novel coronavirus Current Visit: Yes Status: Acute Plan: Patient is 69 years of age admitted with mild hypoxemia positive for james virus he is doing much better saturation satisfactory feeling better continue with present medication plan for discharge tomorrow unable to discharge today as no oxygen is available will plan to ambulate check is room-air pulse ox is saturation 94% on 3 L Physician Review: Patient Assessed, Agree with Above Assessment and Plan
[2020-05-12] MEDS: ENOXAPARIN 40 MG/0.4 ML SQ SCH (07:51)
[2020-05-12] MEDS: GUAIFENESIN 600 MG SA TAB PO SCH (07:51)
[2020-05-12] MEDS: FAMOTIDINE 20 MG TAB PO SCH (07:51)
[2020-05-12] MEDS: ASPIRIN EC 81 MG TAB PO SCH ×2 (07:51→07:53)
[2020-05-12] MEDS: METHYLPREDNISOLONE 125 MG INJ IV SCH (07:51)
[2020-05-12] MEDS: ZINC SULFATE 220 MG CAP PO SCH (07:52)
[2020-05-12 16:17] VITALS: O2SAT 94
[2020-05-12 16:19] VITALS: BP 151/72; TEMP 97.5
--- NOTE | 2020-05-20 22:53 | P.DS ---
Discharge Date: 05/12/20 Disposition: ROUTINE DISCHARGE Discharge Condition: GOOD Reason for Admission: James virus pneumonia Brief History of Present Illness: 69-year-old male past medical history of hypertension, recently diagnosed with cold feet, had a chest x-ray done 2 days ago with finding of pulmonary infiltrate by from PCP's office. He was started on empirical antibiotics as well as steroids. Patient admits to worsening shortness of b reath. He had checked his O2 sat at home was down to 79%. He presents to the ED because of persistent cough and shortness of breath. On arrival he was noted to be mildly dyspneic on exertion with O2 sats down to 88%. He has been admitted for observation. Repeat chest x-ray shows unchanged pulmonary alveolar infiltrates Hospital Course: Patient has done well during hospital stay. We've arranged for home oxygen. At this time, patient is stable for discharge home. Vital Signs/Physical Exam: Temp Pulse Resp BP Pulse Ox 97.5 F 67 19 151/72 H 94 05/12/20 16:00 05/12/20 16:00 05/12/20 16:00 05/12/20 16:00 05/12/20 16:00 General: Alert, In no apparent distress, Oriented x3 Laboratory Data at Discharge: WBC 3.8 K/uL (4.3-10.9) L D 05/11/20 03:38 Hgb 12.8 g/dL (13.6-17.9) L 05/11/20 03:38 Hct 38.8 % (39.6-49.0) L 05/11/20 03:38 Plt Count 109 K/uL (152-406) L 05/11/20 03:38 PT 14.7 SECONDS (9.5-12.5) H 05/10/20 06:58 INR 1.25 05/10/20 06:58 Sodium 137 mmol/L (136-145) 05/11/20 03:38 Potassium 4.7 mmol/L (3.5-5.1) 05/11/20 03:38 BUN 19 mg/dL (7-18) H 05/11/20 03:38 Creatinine 0.96 mg/dL (0.55-1.3) 05/11/20 03:38 Glucose 173 mg/dL (74-106) H 05/11/20 03:38 Magnesium 2.2 mg/dL (1.8-2.4) 05/10/20 06:58 Total Bilirubin 0.6 mg/dL (0.2-1.0) 05/11/20 03:38 AST 25 U/L (15-37) 05/11/20 03:38 ALT 27 U/L (12-78) 05/11/20 03:38 Alkaline Phosphatase 38 U/L (45-117) L 05/11/20 03:38 Troponin I < 0.02 ng/mL (0.0-0.045) 05/12/20 03:38 Home Medications: Amlodipine Besylate 5 mg PO DAILY 03/30/20 Aspirin [Aspirin EC 81 MG] 81 mg PO DAILY 30 Days #30 tablet. 03/30/20 Metoprolol Tartrate [Lopressor*] 25 mg PO BID 30 Days #60 tab 03/30/20 Ivermectin 18 mg PO ONCE 1 Days #6 tablet 05/11/20 dexAMETHasone [Decadron*] 4 mg PO BID #20 tab 05/11/20 New Medications: dexAMETHasone [Decadron*] 4 mg PO BID #20 tab Ivermectin 18 mg PO ONCE 1 Days #6 tablet Physician Discharge Instructions: -OK TO DC IV AND DC HOME -FOLLOW-UP WITH PCP IN 1-2 WEEKS -FOLLOW-UP WITH Pulmonary IN 1-2 WEEKS -PLEASE MAKE SURE ALL DIAGNOSTIC STUDIES ARE AVAILABLE AND HAVE BEEN REVIEWED WITH PATIENT PRIOR TO DISCHARGE -RETURN TO THE ER IF symptoms worsen -CALL DR. VILLALPANDO AT [phone] IF ANY QUESTIONS REGARDING HOSPITAL STAY -PLEASE CALL THE FLOOR AT [phone] IF ANY MEDICATION OR NURSING QUESTIONS Diet: AHA Activity: Fall precautions Followup: Ty Mcpherson MD [ACTIVE - CAN ADMIT] - 1-2 Weeks (Call for appointment) Juan Thomas MD [Primary Care Provider] - 1-2 Weeks (Call for Appointment) Time spent managing pt's care (in minutes): 35
== END 2020-05-12 17:15 | disposition home or self-care (01) | DRG 177 ==
LOC: ER 05:58 → ERHOLD 12:01 → 4TH 20:22 → OBSVTOIN 05-11 13:06
PROVIDERS: ADMIT Internal Medicine; ATTEND Hospitalist
DX: U07.1 COVID-19 (principal); J12.82 Pneumonia due to coronavirus disease 2019; R06.03 Acute respiratory distress; I10 Essential (primary) hypertension; Z88.0 Allergy status to penicillin; Z79.899 Other long term (current) drug therapy; Z79.82 Long term (current) use of aspirin
CPT/HCPCS: 36415; 71045; 80048; 80053; 80076; 83735; 83880; 84145; 84484; 85025; 85379; 85610; 86140; 87040; 93005; 96374; G0378; J1650; J2930; U0003

== ENCOUNTER 2025-02-02 20:17 | Emergency (ER) | payer OTHER ==
--- OUTSIDE RECORDS SUMMARY | 2025-02-02 20:19 | XMS REPORT | Continuity of Care Document ---
Author Name Unknown Address [address] [place] [address] [facility] Address [address] [place] [address] Care Team Providers Care Cmm Operator Name Role Phone Shyla Deleon DO Attending Clinician SHYLA DELEON Attending Clinician Unavailable SHYLA DELEON Attending Clinician Unavailable Doctor Unassigned, [place] Attending Clinician U navailable Payers Payer Name Policy Type Policy Number Effective Date Expirati on Date Source Problems Condition Name Condition Details Condition Category Status Onset Date Resolution Date Last Treatment Date Treating Clinician Comments Source No known active problems No known active problems Disease [facility] Allergies, Adverse Reactions, Alerts Allergy Name Allergy Type Status Severity Reaction(s) Onset Date Inactive Date Treating Clinician Comments Source Penicill in Propensi ty to adverse reaction s Active Swelling 07-25 00:00: 00 [facility] PENICILL IN DRUG INGREDI Active Swelling 07-25 00:00: 00 [facility] NO KNOWN ALLERGIE S Drug Class Active [facility] Social History Social Habit Start Date Stop Date Quantity Comments Source Exposure to SARS-CoV-2 (event) Not sure [facility] acute [facility] Sex Assigned At 1950 00:00:00 1950 00:00:00 [facility] Smoking Status Start Date Stop Date Source Unknown if ever smoked [facility] Medications Ordered Medication Name Filled Medication Name Start Date Stop Date Current Medication? Ordering Clinician Indication Dosage Frequency Signature (SIG) Comments Components Source amLODIPine 5 mg tablet 07-07 00:00: 00 Yes 5mg Take 5 mg by mouth daily. [facility] FLUoxetine 10 mg capsule - 00:00: 00 Yes 10mg Take 10 mg by mouth daily. [facility] albuterol 90 mcg/actuati on inhaler 1- 00:00: 00 Yes INHALE 1 2 PUFFS BY MOUTH EVERY 4 6 HOURS [facility] aspirin 81 mg chewable tablet 1- 00:00: 00 Yes 81mg Take 81 mg by mouth daily. [facility] Vital Signs Vital Name Observation Time Observation Value Comments S leann Systolic blood pressure 2020-07-25 16:06:00 137 mm[Hg] [facility] Diastolic blood pressure 2020-07-25 16:06:00 83 mm[Hg] [facility] Heart rate 2020-07-25 16:06:00 69 /min [facility] Respiratory rate 2020-07-25 16:06:00 18 /min [facility] Body height 2020-07-25 16:06:00 177.8 cm [facility] Body weight 2020-07-25 16:06:00 104.872 kg [facility] BMI 2020-07-25 16:06:00 33.17 kg/m2 [facility] Oxygen saturation in Arterial blood by Pulse oximetry 2020-07-25 16:06:00 97 /min [facility] Procedures Procedure Date / Time Performed Performing Clinicia n Source CONSENT/REFUSAL FOR DIAGNOSIS AND TREATMENT 2020-07-25 15:42:52 Doctor Unassigned, [place] [facility] Encounters Start Date/Time End Date/Time Encounter Type Admission Type Attending Clinicians Care Facility Care Department Encounter ID Source 2020-07-25 10:44:18 2020-07-25 11:25:53 Office Visit Shyla Deleon [facility] [id number] [facility] 2020-07-25 10:40:00 2020-07-25 10:40:00 Outpatient R SHYLA DELEON [facility] [id number] 2020-07-25 00:00:00 2020-07-25 00:00:00 Orders Only Doctor Unassigned, [place] [facility] [id number] [facility]
[2025-02-02] MEDS ORDERED: predniSONE 20 MG TAB ONE (20:41)
[2025-02-02] MEDS ORDERED: DOXYCYCLINE 100 MG CAP PO ONE (20:41)
--- NOTE | 2025-02-02 20:47 | EDPHYS ---
Physician Documentation [facility] Name: Arben Spear Age: 74 yrs Sex: Male : 1950 Arrival Date: 02/02/2025 Time: 20:17 Bed IW1 Private MD: ED Physician Kun Botello HPI: 02/02 22:34 This 74 yrs old Male presents to ER via Ambulatory with complaints of Rash. sb4 22:34 Patient reports a rash on his bilateral lower legs for about 4 months now. He initially sb4 saw his PCP who was told it was shingles and to use [id number] cream. He states that he has been using it regularly, but the rash is not improving and it has spread. He states that it is even worse on the folds of his knees and his excoriated and crusted. He states it does not hurt but it does itch. States is not in any other locations. Has not taken any other medications for symptoms. Historical: - Allergies: 20:43 PENICILLINS; me1 - PMHx: 20:43 Hypertension; me1 - PSHx: 20:43 None; me1 - Immunization history:: Adult Immunizations up to date. - Infectious Disease History:: Denies. - Social history:: Smoking status: Patient denies any tobacco usage or history of. ROS: 22:34 Constitutional: Negative for fever, chills, and weight loss, sb4 22:34 Skin: Positive for rash, of the right leg and left leg, 22:34 All other systems are negative, Exam: 22:35 Constitutional: This is a well developed, well nourished patient who is awake, alert, sb4 and in no acute distress. Head/Face: Normocephalic, atraumatic. Eyes: Extra-ocular motions intact. Periorbital areas with no swelling, redness, or edema. ENT: Mucous membranes moist. Respiratory: No increased work of breathing, no retractions or nasal flaring. 22:35 Skin: on the right leg and left leg, Maculopapular rash noted to left and right shins and thighs circumferentially. There is some excoriation with honey crusted edges on the knee flexures, Vital Signs: 20:39 BP 161 / 94; Pulse 83; Resp 17; Temp 98.4; Pulse Ox 100% ; Weight 105.23 kg; Height 5 me1 ft. 10 in. ; Pain 0/10; 20:39 Body Mass Index 33.29 (105.23 kg, 177.8 cm) me1 20:39 Pain Scale: Adult me1 MDM: 20:30 Medical Screening Exam initiated sb4 22:37 Differential diagnosis: impetigo, varicella, allergic reaction, parasite infection, sb4 carcinoma. Data reviewed: vital signs, nurses notes, and as a result, I will discharge patient. Counseling: I had a detailed discussion with the patient and/or guardian regarding the historical points, exam findings, and any diagnostic results supporting the discharge/admit diagnosis, the presence of at least one elevated blood pressure reading (>120/80) during this emergency department visit, the need for outpatient follow up, for definitive care, to return to the emergency department if symptoms worsen or persist or if there are any questions or concerns that arise at home. Administered Medications: 20:47 CANCELLED (Physician Discretion): trimethoprim-sulfamethoxazole(160 mg-800 mg (ds) 1 sb4 tablet PO once 20:53 Drug: predniSONE PO 40 mg PO once Route: PO; me1 20:53 Follow up: Response: No adverse reaction me1 20:53 Drug: Doxycycline PO 100 mg PO once Route: PO; me1 20:53 Follow up: Response: No adverse reaction me1 Disposition: 02/03 02:48 Co-signature as Attending Physician, Kun Botello MD I agree with the assessment sp4 and plan of care. I reviewed the patient's care provided by Advanced Practice Provider \T\ agree w/ the diagnosis \T\ care plan. I personally saw the pt \T\ performed a substantive portion of the visit, incldng all aspects of the (History/Exam/Medical Decision Making). Disposition Summary: 02/02/25 20:47 Discharge Ordered Notes: Location: Home sb4 Problem: new sb4 Symptoms: are unchanged sb4 Condition: Stable sb4 Diagnosis - Rash and other nonspecific skin eruption sb4 Followup: sb4 - With: Private Physician - When: As needed - Reason: Recheck today's complaints, Re-evaluation by your physician Discharge Instructions: - Discharge Summary Sheet sb4 - Rash, Adult, Rxet-gk-Diys sb4 Forms: - Antibiotic Education sb4 - Patient Portal Instructions sb4 - Leadership Thank You Letter sb4 Prescriptions: - Prednisone 20 mg Oral Tablet - take 1 tablet ORAL route once daily for 5 days; 5 tablet; Refills: 0, Product sb4 Selection Permitted - Doxycycline Hyclate 100 mg Oral Tablet - take 1 tablet ORAL route every 12 hours; 20 tablet; Refills: 0, Product sb4 Selection Permitted - Nystatin-Triamcinolone 100,000-0.1 unit/g-% Topical cream - apply 1 application TOPICAL route 2 times per day; 1 Applicator; Refills: 0, sb4 Product Selection Permitted Signatures: Dana Orozco PA-C PA-C sb4 Kun Botello MD MD sp4 Hannah Vergara RN RN me1 Corrections: (The following items were deleted from the chart) 02/02 20:47 20:46 Trimethoprim-Sulfamethoxazole PO (160 mg-800 mg (DS) 1 tablet PO once ordered. sb4sb4
--- NOTE | 2025-02-02 20:47 | ER ---
Nurse's Notes [facility] Name: Arben Spear Age: 74 yrs Sex: Male : 1950 Arrival Date: 02/02/2025 Time: 20:17 Bed IW1 Private MD: Diagnosis: Rash and other nonspecific skin eruption Presentation: 02/02 20:39 Chief complaint: Patient states: About 4 months ago patient was diagnosed with me1 shingles. Rash was behind the left knee. A wound has developed where the rash was and is getting worse and now patient is getting the same type of wound behind the right knee. Denies pain but reports both sides are itchy. Coronavirus screen: At this time, the client does not indicate any symptoms associated with coronavirus-19. Ebola Screen: No symptoms or risks identified at this time. Initial Sepsis Screen: Does the patient meet any 2 criteria? No. Patient's initial sepsis screen is negative. Does the patient have a suspected source of infection? No. Patient's initial sepsis screen is negative. Risk Assessment: Do you want to hurt yourself or someone else? Patient reports no desire to harm self or others. Onset of symptoms is unknown. 20:39 Method Of Arrival: Ambulatory [facility] [place] 20:39 Acuity: NAYELI 4 me1 Triage Assessment: 20:43 General: Appears in no apparent distress. well groomed, well developed, well nourished, me1 Behavior is calm, cooperative, appropriate for age. Pain: Denies pain. EENT: No signs and/or symptoms were reported regarding the EENT system. Neuro: Level of Consciousness is awake, alert, obeys commands, Oriented to person, place, time, situation, Appropriate for age. Cardiovascular: Patient's skin is warm and dry. Respiratory: Airway is patent Respiratory effort is even, unlabored, Respiratory pattern is regular, symmetrical. GI: No signs and/or symptoms were reported involving the gastrointestinal system. : No signs and/or symptoms were reported regarding the genitourinary system. Derm: Skin wounds behind bilateral knees. The left started about 4 months ago and it just started to develop behind the right knee. Musculoskeletal: Circulation, motion, and sensation intact. Range of motion: intact in all extremities. Historical: - Allergies: 20:43 PENICILLINS; me1 - PMHx: 20:43 Hypertension; me1 - PSHx: 20:43 None; me1 - Immunization history:: Adult Immunizations up to date. - Infectious Disease History:: Denies. - Social history:: Smoking status: Patient denies any tobacco usage or history of. Screenin:47 [facility] ED Fall Risk Assessment (Adult) History of falling in the last 3 months, me1 including since admission No falls in past 3 months (0 pts) Confusion or Disorientation No (0 pts) Intoxicated or Sedated No (0 pts) Impaired Gait No (0 pts) Mobility Assist Device Used No (0 pt) Altered Elimination No (0 pt) Score/Fall Risk Level 0 - 2 = Low Risk Maintained a safe environment, Provided non-skid footwear, Hourly rounding (assess needs \T\ fall precautionary measures) done. Abuse screen: Denies threats or abuse. Nutritional screening: No deficits noted. Tuberculosis screening: No symptoms or risk factors identified. Assessment: 20:47 General: See triage assessment. me1 Vital Signs: 20:39 BP 161 / 94; Pulse 83; Resp 17; Temp 98.4; Pulse Ox 100% ; Weight 105.23 kg; Height 5 me1 ft. 10 in. ; Pain 0/10; 20:39 Body Mass Index 33.29 (105.23 kg, 177.8 cm) me1 20:39 Pain Scale: Adult me1 ED Course: 20:19 Patient arrived in ED. im 20:26 Dana Orozco PA-C is PHCP. sb4 20:27 Kun Botello MD is Attending Physician. sb4 20:43 Triage completed. me1 20:43 Arm band placed on Patient placed in an internal wait recliner. me1 20:47 Patient has correct armband on for positive identification. Provided Education on: POC. me1 Verbalized understanding.. 20:47 No provider procedures requiring assistance completed. Patient did not have IV access me1 during this emergency room visit. Administered Medications: 20:47 CANCELLED (Physician Discretion): trimethoprim-sulfamethoxazole(160 mg-800 mg (ds) 1 sb4 tablet PO once 20:53 Drug: predniSONE PO 40 mg PO once Route: PO; me1 20:53 Follow up: Response: No adverse reaction me1 20:53 Drug: Doxycycline PO 100 mg PO once Route: PO; me1 20:53 Follow up: Response: No adverse reaction me1 Medication: 20:47 VIS not applicable for this client. me1 Outcome: 20:47 Discharge ordered by . jackie 20:53 Discharged to home ambulatory, me1 20:53 Condition: stable 20:53 Discharge instructions given to patient, Instructed on discharge instructions, follow up and referral plans. medication usage, Demonstrated understanding of instructions, follow-up care, medications, Prescriptions given X 3, 20:54 Patient left the ED. me1 Signatures: Dana Orozco PA-C PA-C sb4 Mendoza, Itzel im Eddleman, Michelle, RN RN me1
[2025-02-03 02:26] VITALS: BP 161/94; TEMP 98.4; O2SAT 100
== END 2025-02-02 20:54 | disposition home or self-care (01) ==
LOC: ER 20:17
DX: R21 Rash and other nonspecific skin eruption (principal)
CPT/HCPCS: 99283; J7512